=== PATIENT | male | born 1980 | race African-American/Black ===

== ENCOUNTER 2022-03-31 14:54 | Emergency (ER) | payer MEDICAID ==
[~2022-03-31] VITALS: Ht 177.8 cm; Wt 79.0 kg
[2022-03-31 15:03] VITALS: BP 125/96
[2022-03-31] MEDS ORDERED: KETO10DR3 EACHEYE (15:11)
== END 2022-03-31 15:24 | disposition home or self-care (01) ==
LOC: ER 14:54
DX: F10.20 Alcohol dependence, uncomplicated (principal); T51.0X1A Toxic effect of ethanol, accidental (unintentional), initial encounter; Y90.9 Presence of alcohol in blood, level not specified
CPT/HCPCS: 99282

== ENCOUNTER 2022-03-31 20:06 | Emergency (ER) | payer SELFPAY ==
[~2022-03-31] VITALS: Ht 177.8 cm; Wt 90.9 kg
[~2022-03-31 20:06] MED LIST: KETO10DR3 EACHEYE
[2022-03-31 20:54] VITALS: BP 222/125
== END 2022-03-31 22:12 | disposition left against medical advice (07) ==
LOC: ER 22:10
DX: T78.40XA Allergy, unspecified, initial encounter (principal); Z53.21 Procedure and treatment not carried out due to patient leaving prior to being seen by health care provider